=== PATIENT | female | born 1960 | race Caucasian/White ===

== ENCOUNTER 2017-04-09 19:56 | Emergency (ER) | payer BC ==
[2017-04-09] MEDS: NITROGLYCERIN SUBLINGUAL 0.4 MG BOTTLE OF 25. SL PRN ×3 (20:27→20:39)
[2017-04-09] MEDS ORDERED: ASPIRIN 81 MG TAB.CHEW ONE (20:27)
[2017-04-09] MEDS ORDERED: LORazepam 2 MG/ML VIAL IV ONE (20:30)
[2017-04-09] MEDS ORDERED: ASPIRIN 81 MG TAB.CHEW PO ONE (20:30)
--- NOTE | 2017-04-09 20:31 | PHYS DOC ---
Past History Past Medical History: Anxiety, Depression, Hypertension Past Surgical History: Hysterectomy Adult General Chief Complaint Chief Complaint: CHEST PAIN HPI HPI Patient is a 56 year old female who presents with complaint of chest pain. Patient states her symptoms are approximately 2 hours prior to arrival. Patient states that she started having substernal pressure radiating into the right side of her chest while at rest. The patient states that she recently lost her [id number] and has been under a significant amount of stress. Patient does have history of hypertension and history of tobacco use. Patient denies any associated sweating, shortness of breath. Patient does admit to nausea but no vomiting. Denies any abdominal pain. Patient denies history of any known coronary artery disease. Patient does admit to family history of heart attack in her father who had to have triple bypass surgery at the age of 80. The patient states that she feels that she may just be very stressed and anxious which could be causing her symptoms. Review of Systems Review of Systems Constitutional: Denies fever or chills [] Eyes: Denies change in visual acuity, redness, or eye pain [] HENT: Denies nasal congestion or sore throat [] Respiratory: Denies cough or shortness of breath [] Cardiovascular: Chest pain [] GI: Nausea, denies abdominal pain, vomiting, bloody stools or diarrhea [] : Denies dysuria or hematuria [] Musculoskeletal: Denies back pain or joint pain [] Integument: Denies rash or skin lesions [] Neurologic: Denies headache, focal weakness or sensory changes [] Current Medications Current Medications Current Medications Medications (Trade) Dose Ordered Sig/[facility] Start Time Stop Time Status Last Admin Dose Admin Aspirin (Children'S Aspirin) 81 mg STK-MED ONCE 04/09/17 20:27 04/09/17 20:28 DC Fentanyl Citrate (Fentanyl 2ml Vial) 50 mcg 1X ONCE 04/09/17 21:45 04/09/17 21:46 DC 04/09/17 20:40 50 MCG Lorazepam (Ativan) 1 mg 1X ONCE 04/09/17 20:30 04/09/17 21:09 DC 04/09/17 20:55 1 MG Nitroglycerin (Nitrostat) 0.4 mg PRN Q5MIN PRN 04/09/17 20:30 04/10/17 20:29 04/09/17 20:39 0.4 MG Ondansetron HCl (Zofran) 4 mg 1X ONCE 04/09/17 21:45 04/09/17 21:46 DC Sodium Chloride 500 ml @ 0 mls/hr 1X ONCE 04/09/17 21:15 04/09/17 21:16 DC 04/09/17 21:11 500 MLS/HR Allergies Allergies Allergies Coded Allergies Type Severity Reaction Last Updated Verified No Known Drug Allergies 04/09/17 No Physical Exam Physical Exam Constitutional: Alert, afebrile, appears in mild to moderate discomfort. [] HENT: Normocephalic, atraumatic, bilateral external ears normal, oropharynx moist, no oral exudates, nose normal. [] Eyes: PERRLA, EOMI, conjunctiva normal, no discharge. [] Neck: Normal range of motion, no tenderness, supple, no stridor. [] Cardiovascular:Heart rate regular rhythm, no murmur [] Lungs & Thorax: Bilateral breath sounds clear to auscultation [] Abdomen: Bowel sounds normal, soft, no tenderness, no masses, no pulsatile masses. [] Skin: Warm, dry, no erythema, no rash. [] Back: No tenderness, no CVA tenderness. [] Extremities: No tenderness, no cyanosis, no clubbing, ROM intact, no edema. [] Neurologic: Alert and oriented X 3, normal motor function, normal sensory function, no focal deficits noted. [] Current Patient Data Vital Signs Vital Signs Date Time Temp Pulse Resp B/P (MAP) Pulse Ox O2 Delivery O2 Flow Rate FiO2 04/09/17 20:39 65 146/82 04/09/17 19:56 98.3 18 98 Room Air Lab Results Laboratory Tests Test 04/09/17 20:15 04/09/17 22:10 White Blood Count 9.8 x10^3/uL Red Blood Count 4.06 x10^6/uL Hemoglobin 12.5 g/dL Hematocrit 36.8 % Mean Corpuscular Volume 91 fL Mean Corpuscular Hemoglobin 31 pg Mean Corpuscular Hemoglobin Concent 34 g/dL Red Cell Distribution Width 14.2 % Platelet Count 317 x10^3/uL Neutrophils (%) (Auto) 65 % Lymphocytes (%) (Auto) 28 % Monocytes (%) (Auto) 5 % Eosinophils (%) (Auto) 2 % Basophils (%) (Auto) 0 % Neutrophils # (Auto) 6.3 x10^3uL Lymphocytes # (Auto) 2.7 x10^3/uL Monocytes # (Auto) 0.5 x10^3/uL Eosinophils # (Auto) 0.2 x10^3/uL Basophils # (Auto) 0.0 x10^3/uL Prothrombin Time 9.4 SEC Prothromb Time International Ratio 0.9 Activated Partial Thromboplast Time 25 SEC Sodium Level 137 mmol/L Potassium Level 4.2 mmol/L Chloride Level 102 mmol/L Carbon Dioxide Level 26 mmol/L Anion Gap 9 Blood Urea Nitrogen 15 mg/dL Creatinine 0.9 mg/dL Estimated GFR (Cockcroft-Gault) 64.5 BUN/Creatinine Ratio 17 Glucose Level 103 mg/dL Calcium Level 8.6 mg/dL Magnesium Level 2.0 mg/dL Total Bilirubin 0.4 mg/dL Aspartate Amino Transf (AST/SGOT) 16 U/L Alanine Aminotransferase (ALT/SGPT) 18 U/L Alkaline Phosphatase 82 U/L Creatine Kinase 88 U/L 59 U/L Creatine Kinase MB (Mass) 1.3 ng/mL 0.8 ng/mL Creatine Kinase MB Relative Index 1.5 % 1.4 % Troponin I Quantitative < 0.017 ng/mL < 0.017 ng/mL Total Protein 7.3 g/dL Albumin 3.8 g/dL Albumin/Globulin Ratio 1.1 Current Medications Medications (Trade) Dose Ordered Sig/[place] Route PRN Reason Start Time Stop Time Status Last Admin Dose Admin Aspirin (Children'S Aspirin) 324 mg 1X ONCE PO 04/09/17 20:30 04/09/17 21:09 DC 04/09/17 20:28 324 MG Nitroglycerin (Nitrostat) 0.4 mg PRN Q5MIN PRN SL CP RATING > /10 04/09/17 20:30 04/10/17 20:29 04/09/17 20:39 0.4 MG Lorazepam (Ativan) 1 mg 1X ONCE IV 04/09/17 20:30 04/09/17 21:09 DC 04/09/17 20:55 1 MG Sodium Chloride 500 ml @ 0 mls/hr 1X ONCE IV 04/09/17 21:15 04/09/17 21:16 DC 04/09/17 21:11 500 MLS/HR Aspirin (Children'S Aspirin) 81 mg STK-MED ONCE .ROUTE 04/09/17 20:27 04/09/17 20:28 DC Fentanyl Citrate (Fentanyl 2ml Vial) 50 mcg 1X ONCE IV 04/09/17 21:45 04/09/17 21:46 DC 04/09/17 20:40 50 MCG Ondansetron HCl (Zofran) 4 mg 1X ONCE IV 04/09/17 21:45 04/09/17 21:46 DC EKG EKG Interpreted by me: Heart rate 71, sinus rhythm, normal intervals, normal axis, no acute ST/T-wave abnormalities present [] Radiology/Procedures Radiology/Procedures One view AP chest x-ray interpreted by me: No infiltrates, no effusions, normal cardiac silhouette [] Course & Med Decision Making Course & Med Decision Making Pertinent Labs and Imaging studies reviewed. (See chart for details) Patient was given aspirin, IV fluids, nitroglycerin, lorazepam, fentanyl, and Zofran. On reevaluation, patient states her symptoms have resolved and patient' s vital signs are stable at this time. Patient had 2 sets of cardiac enzymes which showed no upward trend. Patient is at a very low risk for an acute coronary event and after discussion, patient would like to pursue outpatient follow-up. Advised follow-up in 2-3 days with cardiology for reevaluation and cardiac stress testing. Advised return to the emergency department for any worsening symptoms. Patient voiced understanding and in agreement with treatment plan. Dragon Disclaimer Dragon Disclaimer This chart was dictated in whole or in part using Voice Recognition software in a busy, high-work load, and often noisy Emergency Department environment. It may contain unintended and wholly unrecognized errors or omissions. Departure Departure: Impression: Primary Impression: Chest pain Disposition: HOME, SELF-CARE Condition: STABLE Referrals: NON,STAFF (PCP) Patient Instructions: Chest Pain (Nonspecific) Additional Instructions: Follow-up with cardiology in 2 days for outpatient stress testing. Continue to take 325 mg of aspirin daily until you have had your follow-up. Return to the emergency department for any worsening symptoms. Scripts Aspirin (ASPIRIN EC) 325 Mg Tablet.dr 1 TAB PO DAILY, #30 TAB 0 Refills Prov: EVELIA DONIS MD 04/09/17 Problem Qualifiers Primary Impression: Chest pain Chest pain type: unspecified Qualified Codes: R07.9 - Chest pain, unspecified EVELIA DONIS MD Apr 09, 2017 20:31
[2017-04-09 20:39] LABS: BASO % 0 % (0-3); EOS # 0.2 x10^3/uL (0.0-0.7); EOS % 2 % (0-3); HEMATOCRIT 36.8 % (36.0-47.0); HEMOGLOBIN 12.5 g/dL (12.0-15.5); LYMPH # 2.7 x10^3/uL (1.0-4.8); LYMPH % 28 % (24-48); MEAN CORPUSCULAR HEMOGLOBIN 31 pg (25-35); MEAN CORPUSCULAR HGB CONC 34 g/dL (31-37); MEAN CORPUSCULAR VOLUME 91 fL (79-100); MONO # 0.5 x10^3/uL (0.0-1.1); MONO % 5 % (0-9); NEUT # 6.3 x10^3uL (1.8-7.7); NEUT % 65 % (31-73); PLATELET COUNT 317 x10^3/uL (140-400); RED BLOOD COUNT 4.06 x10^6/uL (3.50-5.40); RED CELL DISTRIBUTION WIDTH 14.2 % (11.5-14.5); WHITE BLOOD COUNT 9.8 x10^3/uL (4.0-11.0)
[2017-04-09 20:57] LABS: ALBUMIN 3.8 g/dL (3.4-5.0); ALBUMIN/GLOBULIN RATIO 1.1 (1.0-1.7); CALCIUM 8.6 mg/dL (8.5-10.1); CREATININE 0.9 mg/dL (0.6-1.0); GFR 64.5; POTASSIUM 4.2 mmol/L (3.5-5.1); TOTAL BILIRUBIN 0.4 mg/dL (0.2-1.0); TOTAL PROTEIN 7.3 g/dL (6.4-8.2)
[2017-04-09] MEDS ORDERED: IV NORMAL SALINE 500ML 500 ML IV ONE (21:15)
[2017-04-09] MEDS ORDERED: ONDANSETRON PF 4 MG/2 ML VIAL. IV ONE (21:45)
[2017-04-09] MEDS ORDERED: fentaNYL PF 100 MCG/2 ML VIAL IV ONE (21:45)
[2017-04-09] MEDS ORDERED: ASPI325T11 PO (23:43)
[2017-04-09 23:48] VITALS: BP 142/85
--- NOTE | 2017-04-10 06:55 | EKG ---
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
--- NOTE | 2017-04-10 07:48 | RAD ---
Portable chest, 04/09/2017: History: Chest pain The heart size and pulmonary vascularity are normal. No pulmonary infiltrates are seen. There is no evidence of pleural fluid. IMPRESSION: No acute cardiopulmonary abnormality is detected.
== END 2017-04-09 23:50 | disposition home or self-care (01) ==
LOC: ER 19:56
DX: R07.89 Other chest pain (principal); F41.9 Anxiety disorder, unspecified; I10 Essential (primary) hypertension; Z87.891 Personal history of nicotine dependence
CPT/HCPCS: 36415; 71010; 80053; 82553; 83735; 84484; 85027; 85610; 85730; 93005; 96361; 96374; 96375; 99285; J2060; J3010; J7040